=== PATIENT | female | born 1950 | race Caucasian/White ===

== ENCOUNTER 2016-07-05 07:56 | Emergency (ER) | payer SELFPAY ==
[~2016-07-05] VITALS: Ht 154.9 cm; Wt 63.5 kg
[2016-07-05] MEDS ORDERED: TETRACAINE 0.5% OPHTH SOLUTION 4ML BOTTLE. ONE (08:14)
[2016-07-05] MEDS ORDERED: FLUORESCEIN OPHTH TEST STRIP. ONE (08:14)
[2016-07-05] MEDS ORDERED: FLUORESCEIN OPHTH TEST STRIP. OS ONE (08:15)
[2016-07-05] MEDS ORDERED: TETRACAINE 0.5% OPHTH SOLUTION 4ML BOTTLE. OS ONE (08:15)
[2016-07-05 08:19] VITALS: BP 161/96
[2016-07-05] MEDS ORDERED: ERYT1OIN6 LEFTEYE (08:36)
--- NOTE | 2016-07-05 08:36 | PHYS DOC ---
Past Medical History Past Medical History: Diabetes-Type II, Hypertension Past Surgical History: Tubal ligation Alcohol Use: None Drug Use: None Adult General Chief Complaint Chief Complaint: EYE PROBLEMS HPI HPI Patient is a 66 year old female who presents with left eye pain, watery discharge, and redness over the past 2 days. Woke up with matting today. She also has minimal rhinorrhea and dry cough. She denies vision changes, headache, fever or chills, sore throat, ear pain. No known sick contacts. Review of Systems Review of Systems Constitutional: Denies fever or chills [] Eyes: Denies change in visual acuity [] HENT: Denies nasal congestion or sore throat [] Respiratory: Denies cough or shortness of breath [] Cardiovascular: No additional information not addressed in HPI [] GI: Denies abdominal pain, nausea, vomiting, bloody stools or diarrhea [] : Denies dysuria or hematuria [] Musculoskeletal: Denies back pain or joint pain [] Integument: Denies rash or skin lesions [] Neurologic: Denies headache, focal weakness or sensory changes [] Endocrine: Denies polyuria or polydipsia [] Current Medications Current Medications Current Medications Medications (Trade) Dose Ordered Sig/Lakesha Start Time Stop Time Status Last Admin Dose Admin Fluorescein Sodium (Ful-Jaycee) 1 strip 1X ONCE 07/05/16 08:15 07/05/16 08:21 DC 07/05/16 08:23 1 STRIP Tetracaine HCl (Tetracaine) 1 drop 1X ONCE 07/05/16 08:15 07/05/16 08:21 DC 07/05/16 08:20 1 DROP Allergies Allergies Allergies Coded Allergies Type Severity Reaction Last Updated Verified No Known Drug Allergies 07/05/16 No Physical Exam Physical Exam Constitutional: Well developed, well nourished, no acute distress, non-toxic appearance. [] HENT: Normocephalic, atraumatic, bilateral external ears normal, oropharynx moist, no oral exudates, nose normal. [] Eyes: PERRLA, EOMI, left eye with scleral injection, left eye with minimal conjunctival inflammation, left eye with watery discharge, left eyelashes with minimal crusting, clear cornea, no obvious hyphema or hypopyon, no fluorescein uptake with staining, no eye pain with consensual light reflex. [] Neck: Normal range of motion, supple. [] Cardiovascular:Heart rate regular rhythm [] Lungs & Thorax: Bilateral breath sounds clear to auscultation [] Abdomen: Bowel sounds normal, soft, no tenderness. [] Skin: Warm, dry, no erythema, no rash. [] Back: Normal range of motion. [] Extremities: Ambulatory with a steady gait. [] Neurologic: Alert and oriented X 3, normal motor function, normal sensory function, no focal deficits noted. [] Psychologic: Affect normal, judgement normal, mood normal. [] Current Patient Data Vital Signs Vital Signs Date Time Temp Pulse Resp B/P Pulse Ox O2 Delivery O2 Flow Rate FiO2 07/05/16 08:19 97.5 104 18 96 Room Air 97.5 Course & Med Decision Making Course & Med Decision Making Pertinent Labs and Imaging studies reviewed. (See chart for details) Eye discomfort feels much better after tetracaine applied. Has poor visual acuity at baseline and did not bring her glasses. Encouraged close ophthalmology follow-up. Return precautions given. She understands and agrees with plan. Dragon Disclaimer Dragon Disclaimer This electronic medical record was generated, in whole or in part, using a voice recognition dictation system. Departure Departure Impression: Primary Impression: Conjunctivitis Disposition: 01 HOME, SELF-CARE Condition: STABLE Referrals: MARGOTH HARPER MD (PCP) Patient Instructions: Conjunctivitis (Viral and Bacterial) Additional Instructions: Use erythromycin ointment to help with conjunctivitis. 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 Please call for appointment. Return for any concerns. Scripts Erythromycin Base (Erythromycin)3.5 Gm Oint...g.1 Sharath LEFTEYE #3.5 GM Prov:Franky FREDERICK MD 07/05/16 Problem Qualifiers Primary Impression: Conjunctivitis Conjunctivitis type: acute Acute conjunctivitis type: unspecified Laterality: left Qualified Code: H10.32 - Unspecified acute conjunctivitis, left eye Franky FREDERICK MD Jul 05, 2016 08:36
== END 2016-07-05 08:43 | disposition home or self-care (01) ==
LOC: ER 07:56
DX: H10.32 Unspecified acute conjunctivitis, left eye (principal); J34.89 Other specified disorders of nose and nasal sinuses; R05 Cough; E11.9 Type 2 diabetes mellitus without complications; I10 Essential (primary) hypertension
CPT/HCPCS: 99283